=== PATIENT | female | born 1985 | race African-American/Black ===

== ENCOUNTER 2025-04-06 18:23 | Emergency (ER) | payer MEDICARE, MEDICAID, SELFPAY ==
[2025-04-06 19:02] VITALS: BP 111/56; PULSE 76; RESP 18; TEMP 36.6; O2SAT 96; BMI 54.2
--- NOTE | 2025-04-06 19:03 | ED.GENADULT ---
HPI - General Adult General Chief complaint: Extremity Problem Stated complaint: rt side arm numbness Time Seen by Provider: 04/06/25 23:24 Source: patient Mode of arrival: ambulatory Limitations: no limitations History of Present Illness ED Provider: Thomas VELASQUEZ HPI narrative: The patient is a 39-year-old female presenting to the ED for evaluation of right upper extremity numbness and pain radiating from the right medial trapezius into the right arm for the past 1-2 weeks. Patient denies associated recent change in activity level, fall, trauma, fever/chills, nausea, vomiting, headache, or recent heavy lifting. The patient has not taken any medication for her symptoms prior to arrival in the ED. Related Data Previous Rx's ?Medication ?Instructions ?Recorded acetaminophen 500 mg capsule 1,000 mg (2 x 500 mg) PO .q8 PRN 04/06/25 fever or pain #30 caps cyclobenzaprine 10 mg tablet 10 mg PO TID PRN muscle spasm #14 04/06/25 tabs ibuprofen 600 mg tablet 600 mg PO Q8H PRN fever or pain 04/06/25 #30 tabs Allergies Allergy/AdvReac Type Severity Reaction Status Date / Time No Known Allergies Allergy Verified 04/06/25 19:04 Review of Systems Review of Systems: Yes all other systems are reviewed and are negative PMFSH Social History Social History Advance Directives: No Advance Directives Information Provided: No Do you have a plan to hurt others: No Plan Physical Exam ED Vital Signs: Vital Signs - 24 hr 04/06/25 19:02 Temperature 98 F Pulse Rate 76 Respiratory Rate 18 Blood Pressure 111/56 L Pulse Oximetry 96 Oxygen Delivery Method Room Air BMI result Body Mass Index 54.2 CONSTITUTIONAL: The patient appears non-toxic, well nourished and in no acute distress. Vital signs as documented. HEAD: Atraumatic, normocephalic. EYES: EOMs grossly intact, pupils equal, conjunctiva clear, no exudate. ENT: Nares patent, no discharge. Airway patent, no audible stridor, visible mucosa is pink and moist without noted lesions. NECK: trachea is midline, no obvious masses or gross abnormalities. No midline cervical spinous process tenderness. CHEST: Symmetric movement, normal appearance. LUNGS: Non-labored work of breathing. CARDIAC: No evidence of hypoperfusion. ABDOMEN: Nondistended, no obvious injury. : Deferred. EXTREMITIES: There is tenderness to palpation of the right trapezius muscle which reproduces patient's pain radiating to the right upper extremity. Right upper extremity demonstrates full range of motion with mild pain, distal CSM is intact, 2+ radial pulse. Ticket Marker strength 5/5. No sensory deficit. Moves all other extremities spontaneously without reported pain. No obvious injury or deformity noted. NEURO: Alert and oriented x3, CN II-XII appear grossly intact. Cerebellar Functioning grossly intact. Speech clear and appropriate. SKIN: Warm, dry, color appropriate. No rashes or lesions noted. Course Course Course Narrative: Rapid medical examination performed in triage by Laney Acevedo PA-C. Patient is a 39 year old assigned female at presenting to the emergency department with RUE pain, numbness, and tingling. Patient states over the last week and a half she has had intermittent right arm numbness, tingling, and pain. Detailed physical exam and review of systems are deferred to the air and hydronic balancing technician. EKG and labs ordered. Patient placed back in the waiting room pending room availability and results. Medical Decision Making Medical Decision Making [facility] Narrative: 11:58 PM 04/06/2025 (Alysa VELASQUEZ): The patient is a 39-year-old female presenting to the ED for evaluation of right upper extremity numbness and pain radiating from the right medial trapezius into the right arm for the past 1-2 weeks. Patient denies associated recent change in activity level, fall, trauma, fever/chills, nausea, vomiting, headache, or recent heavy lifting. The patient has not taken any medication for her symptoms prior to arrival in the ED. In the ED patient is nontoxic appearing, right upper extremity demonstrates 2+ radial pulse, distal CSM intact, full range of motion with mild discomfort. The patient's right trapezius is tender to palpation, no midline spinous process tenderness. Patient's laboratory evaluation demonstrates no leukocytosis, anemia, electrolyte abnormality, or RAJIV. LFTs are unremarkable, troponin is negative, EKG is nonischemic. The patient's presentation is consistent with cervical radiculopathy, we will treat with anti-inflammatories, antispasmodics, topical analgesics, and discharged with supportive care and outpatient PCP follow up. Admission/Observation Consideration of admission/observation: Escalation of care including admission/observation considered Lab Data MDM Lab Attestation statement: I reviewed the patient's lab results. 04/06/25 19:51 04/06/25 19:56 Labs: Lab Results 04/06/25 04/06/25 Range/Units 19:51 19:56 WBC 8.8 (4.8-10.8) X10*3/uL RBC 4.12 L (4.20-5.50) X10*6/uL Hgb 11.8 L (12.0-16.0) g/dl Hct 37.0 (37.0-47.0) % MCV 89.8 (80.0-98.0) fL MCH 28.6 (27.0-33.0) pg MCHC 31.9 (31.0-35.0) g/dl RDW 13.3 (11.0-16.0) % Plt Count 360 (160-400) X10*3/uL MPV 9.9 (9.4-12.3) fL Immature Gran % (Auto) 0.2 (0.0-0.4) % Neut % (Auto) 52.4 (45-73) % Lymph % (Auto) 39.8 (20-40) % Island % (Auto) 6.0 (2-11) % Eos % (Auto) 1.4 (0-4) % Baso % (Auto) 0.2 (0-2) % Lymph # (Auto) 3.5 (1.2-4.9) X10*3/uL Island # (Auto) 0.5 (0.1-1.2) X10*3/uL Eos # (Auto) 0.1 (0.0-0.4) X10*3/uL Baso # (Auto) 0.0 (0.0-0.2) X10*3/uL Abs Immat Gran (auto) 0.02 (0.00-0.03) X10*3/uL Absolute Neuts (auto) 4.6 (2.0-8.3) x10*3/uL Absolute Nucleated RBC 0.000 (0.0-0.012) X10*3/uL Nucleated RBC % (auto) 0.0 (0.0-0.2) /100WBC Sodium 140 (135-145) mmol/L Potassium 3.5 (3.3-5.1) mmol/L Chloride 108 (96-108) mmol/L Carbon Dioxide 25 (22-29) mmol/L Anion Gap 11 L (12-20) BUN 13 (9-16) mg/dL Creatinine 0.62 (0.5-1.4) mg/dL Estim Creat Clear Calc 195.7 Estimated GFR > 60 Random Glucose 86 (60-115) mg/dL Calcium 9.1 (8.4-10.2) mg/dL Magnesium 2.0 (1.6-2.6) mg/dL Total Bilirubin 0.3 (0.0-1.0) mg/dL AST 18 (5-31) U/L ALT 22 (0-31) U/L Alkaline Phosphatase 100 (39-117) U/L Troponin I High Sens < 2.7 (<3.5-17.0) ng/L Total Protein 7.6 (6.5-8.0) g/dL Albumin 4.3 (3.5-5.0) g/dL Independent Interpretation I performed an independent interpretation of an: EKG (EKG demonstrates normal sinus rhythm with a rate of 74, no evidence of acute ischemia, no ST elevation, no ectopy. QTC 424. No previous for comparison.) Prescription Management I considered prescription management with: Pain Medication Discharge Plan Discharge Clinical Impression: Cervical radiculopathy Patient Disposition: Home, Self-Care Instructions: Cervical Radiculopathy (ED), Neck Pain (ED) Additional Instructions: Thank you for choosing [facility]'s Emergency Department for your care today. Thankfully your laboratory evaluation and EKG today are reassuring and showed no evidence of any infectious, cardiac, metabolic, or other dangerous cause for your symptoms. At this time there is no indication for admission to the hospital or continued ED observation, and it is safe to discharge you home. Your symptoms and exam today are consistent with compression of nerves as they exit your cervical spine, a condition known as cervical radiculopathy. This can be caused from inflammation and muscle spasm. You should take alternating (staggered) doses of ibuprofen 600mg and Tylenol 1000mg every 4 hours for the next 3-5 days while awake, and then as needed for any additional pain. Please rest the injured area, and apply ice for 20 minutes every hour. As a part of your care plan, you have also been prescribed a muscle relaxer called Flexeril. Please take this medication only for severe pain or spasm that is not relieved by ibuprofen and/or Tylenol. Muscle relaxer medications can carry high risk of unintentional addiction and abuse. Take this medication only as directed and only if absolutely necessary. This medicine can make you drowsy, you are not allowed to drive, operate heavy machinery, or be the sole care provider for children while taking this medication. We have treated you with a lidocaine patch, if you find this provides you significant relief additional patches can be purchased at any local pharmacy without a prescription. Please follow up with your primary care physician for re-evaluation, additional management of your symptoms, and continued preventative care. If you do not have a primary care physician, please call the [facility] at [phone] to establish a new primary care physician. While waiting to establish your new primary care physician, you can call our Walk[facility]in [facility] at [phone] for non-emergency needs. Please return to the emergency department if you develop a severe or sudden change in your symptoms, a fever over 100.4 that does not improve with Tylenol or Ibuprofen, recurrent vomiting, or any other new or worsening symptoms or concerns. Prescriptions: New cyclobenzaprine 10 mg tablet 10 mg PO TID PRN (Reason: muscle spasm) Qty: 14 0RF ibuprofen 600 mg tablet 600 mg PO Q8H PRN (Reason: fever or pain) Qty: 30 0RF acetaminophen 500 mg capsule 1,000 mg PO .q8 PRN (Reason: fever or pain) Qty: 30 0RF Referrals: [facility] [Primary Care Provider, Primary Care] Clinical Impression: Cervical radiculopathy Print Language: Frisian
--- NOTE | 2025-04-06 19:04 | ECG_ITS ---
Test Reason : arm numbness Blood Pressure : */* mmHG Vent. Rate : 74 BPM Atrial Rate : 74 BPM P-R Int : 182 ms QRS Dur : 84 ms QT Int : 382 ms P-R-T Axes : 25 56 50 degrees QTcB Int : 424 ms Normal sinus rhythm Normal ECG No previous ECGs available Referred By: Laney Acevedo Electronically Signed By: DENISE HDZ
[2025-04-06 19:57] LABS: MANUAL DIFF FLAG NO
[2025-04-06 20:02] LABS: Hematocrit 37.0 % (37.0-47.0); Hemoglobin 11.8 g/dl (12.0-16.0); Imm Gran Abs Auto 0.02 X10*3/uL (0.00-0.03); Imm Gran Pct Auto 0.2 % (0.0-0.4); Lymphocytes Absolute Auto 3.5 X10*3/uL (1.2-4.9); Mean Corpuscular HGB Conc 31.9 g/dl (31.0-35.0); Mean Corpuscular Hemoglobin 28.6 pg (27.0-33.0); Mean Corpuscular Volume 89.8 fL (80.0-98.0); NRBC Abs Auto 0.000 X10*3/uL (0.0-0.012); NRBC Pct Auto 0.0 /100WBC (0.0-0.2); Platelet Count 360 X10*3/uL (160-400); Red Blood Count 4.12 X10*6/uL (4.20-5.50); White Blood Count 8.8 X10*3/uL (4.8-10.8)
[2025-04-06 20:12] LABS: Alanine Aminotransferase 22 U/L (0-31); Albumin Level 4.3 g/dL (3.5-5.0); Alkaline Phosphatase 100 U/L (39-117); Anion Gap 11 (12-20); Aspartate Amino Transferase 18 U/L (5-31); Blood Urea Nitrogen 13 mg/dL (9-16); Calcium 9.1 mg/dL (8.4-10.2); Carbon Dioxide 25 mmol/L (22-29); Chloride 108 mmol/L (96-108); Creatinine Clr Calc Pharmacy 195.7; Estimated Glomerular Filt Rate > 60; Magnesium 2.0 mg/dL (1.6-2.6); Potassium 3.5 mmol/L (3.3-5.1); Sodium 140 mmol/L (135-145); Total Protein 7.6 g/dL (6.5-8.0)
[2025-04-06 20:19] LABS: Troponin-I High Sensitivity < 2.7 ng/L (<3.5-17.0)
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
--- OUTSIDE RECORDS SUMMARY | 2025-04-06 20:47 | XMS_ITS | Clinical Summary ---
Author Organization [facility] Address [address] [place] [address] Phone Care Team Providers Care Parking Cashier Name Role Phone Pcp, Unknown Primary Care Provider Unavailabl e Allergies No known active allergies Medications albuterol 90 mcg/actuation inhaler Inhale 1-2 puffs into the lungs every 4 (four) hours as needed for wheezing or shortness of breath/dyspnea. 8 g 5 Active Additional Information Patient not taking.Reported on 02/20/2025 inhaler spacing device (AEROCHAMBER,YOANNA ATHERITE) Spcr Inhale 1 each into the lungs every 4 (four) hours as needed (PRN). 1 each 5 Active Additional Information Patient not taking.Reported on 02/20/2025 metFORMIN (GLUCOPHAGE) 500 MG tablet Take 500 mg by mouth. 5 Active phentermine 15 MG capsule TAKE 1 CAPSULE BY MOUTH EVERY MORNING. MAX DAILY AMOUNT: 15 MG. Active semaglutide, weight loss, (WEGOVY) 0.25 mg/0.5 mL subcutaneous pen injection Inject 0.25 mg under the skin. 4 Active L.acidoph-L.bulg -B.bif-S.therm (BACID) 1 billion cell- 250 mg Tab Take 2 tablets by mouth daily. 60 tablet 5 025 Active Problems No known active problems Encounters Date Type Department Care Team Description 02/20/2025 7:00 PM EDT Office Visit [facility] at [address] [address] Purnima Cabrera PA-C Non-recurrent acute serous otitis media of right ear (Primary Dx); Non-recurrent acute serous otitis media of left ear from Last 3 Months Social History Tobacco Use Types Packs/Day Years Used Date Smoking Tobacco: Never Smokeless Tobacco: Never Tobacco Cessation:Counseling Given: Not Answered Education Answer Date Recorded Are you interested in more education? Not on mica e 08/07/2024 Are you concerned about learning? Not on file 08/07/2024 No 08/07/2024 No 08/07/2024 Digital Access Answer Date Recorded No 08/07/2024 No 08/07/2024 Reliable internet access at home? Not on file 08/07/2024 Device with a working camera? Not on file Sex and Gender Information Value Date Recorded Sex Assigned at Not on file Legal Sex Male 10:40 AM EST Gender Identity Not on file Sexual Orientation Not on file Last Filed Vital Signs Vital Sign Reading Time Taken Comments Blood Pressure 117/80 02/20/2025 7:02 PM EDT Pulse 85 02/20/2025 7:02 PM EDT Temperature 36.7 C (98.1 F) 02/20/2025 7:02 PM EDT Respiratory Rate 18 02/20/2025 7:02 PM EDT Oxygen Saturation 98% 02/20/2025 7:0 2 PM EDT Inhaled Oxygen Concentration - - Weight 159.8 kg (352 lb 3.2 oz) 02/20/2025 7:02 PM EDT patient reported Height 171.5 cm (5' 7.5 ) 02/20/2025 7: 02 PM EDT patient reported Body Mass Index 54.35 02/20/2025 7:02 PM EDT Plan of Treatment Health Maintenance Due Date Last Done Comments CREATININE LEVEL 1987 DEPRESSION SCREENING 1999 HIV ONE-TIME SCREENING (18-65 YEARS) 2005 INFLUENZA VACCINE (#1) 2025 03/11/2009 COVID-19 VACCINE ( season) 2025 08/26/2021, 09/14/2020 SCREENING FOR DIABETES 10/18/2027 10/17/2024 LIPID PANEL 10/17/2029 10/17/2024, 05/0 02/2025, 08/24/2021, Additional history exists Adult Td,Tdap Booster 09/28/2031 09/27/2021 , 10/23/2012, 03/11/2009 HEPATITIS C SCREENING Completed 01/31/2022 SMOKING STATUS SCREENING (Once After 26 Yrs) Completed 02/20/2025 HEPATITIS A VACCINES Aged Out No long er eligible based on patient's age to complete this topic HIB VACCINES Aged Out No longer eligi ble based on patient's age to complete this topic MENINGOCOCCAL VACCINES (ACWY) Aged Out No longer eligible based on patient's age to complete this topic MENINGOCOCCAL VACCINES (B) Aged Out N o longer eligible based on patient's age to complete this topic PNEUMOCOCCAL VACCINES (0-49 years) Aged Out No longer eligible based on patient's age to complete this topic Medical Devices Not on file Insurance [address] [place] [address] MEDICARE PART A & B [facility] [address] [place] [address] MEDICARE PART A & B [place] [address] [place] [address] MEDICARE PART A & B [facility] [address] [place] [address] MEDICARE PART A & B [place] [address] [place] [address] MEDICARE PART A & B HEALTH MEDICARE PART A & B [facility] Care Teams Parking Cashier Relationship Specialty Start Date End Date Pcp, Unknown PCP - General 08/07/24 Additional Source Comments The information contained in this document represents components of the legal health record. It is not the complete legal health record.[facility]
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
[2025-04-07] MEDS: Lidocaine 4 % Patch ADH..PATCH 1 PATCH TRANSDERMA (00:05)
[2025-04-07 00:10] VITALS: BP 130/75; PULSE 74; RESP 16; TEMP 36.5; O2SAT 97
== END 2025-04-07 00:11 | disposition home or self-care (01) ==
PROVIDERS: Physician Assistant Medical; Emergency Provider Emergency Medicine; PCP Dentist General Practice
DX: M54.12 Radiculopathy, cervical region (principal); R20.0 Anesthesia of skin; M79.601 Pain in right arm
CPT/HCPCS: 36415; 80053; 83735; 84484; 85025; 93005; 99283

== ENCOUNTER → 2025-04-06 19:04 | Outpatient (BNV) | payer MEDICARE, MEDICAID, SELFPAY | PROVIDERS: Emergency Provider Emergency Medicine; PCP Dentist General Practice; Visit Provider Internal Medicine | DX: R20.0 Anesthesia of skin (principal) | CPT/HCPCS: 93010 ==